=== PATIENT | male | born 1990 | race Caucasian/White ===

== ENCOUNTER 2017-10-13 16:22 | Emergency (ER) | payer OTHER ==
[~2017-10-13] VITALS: Ht 190.5 cm; Wt 89.9 kg
[~2017-10-13 16:22] MED LIST: CEPH500C2 PO; OXYC10TA80 PO
[2017-10-13 16:50] VITALS: BP 139/79; PULSE 108; TEMP 36.7; O2SAT 97; Ht 190.5 cm; Wt 89.9 kg
--- NOTE | 2017-10-13 17:05 | EMERGENCY ROOM VISIT NOTE ---
ED Visit Note First contact with patient: 16:58 CHIEF COMPLAINT: Concern for foreign body in left arm HISTORY OF PRESENT ILLNESS: This 27-year-old male patient presents to the emergency department, ambulatory, complaining of an IV needle broke off in the left arm. The patient had a peripheral IV in the left AC vein placed several days ago to receive antibiotics. He states this afternoon, the IV came out of his arm. He thought that a needle remains in the arm, and did not realize it was simply a soft catheter. He states when the catheter came out, he thought a needle was left behind. When he came to the emergency department, the IV was removed and they noted the catheter had folded over. It was intact. The patient states when he learned there was no metal needle involved, he felt comfortable, but wanted to be evaluated to ensure there was no concern. He denies any problems at the site. He denies any redness, swelling, or drainage. The IV is in place due to a right finger infection, for which the patient is following with orthopedics. REVIEW OF SYSTEMS: A 6 system review of systems was performed with positives and pertinent negatives listed in the history of present illness. All other systems were reviewed and are negative. ALLERGIES: None MEDICATIONS: Keflex, Rocephin PMH: Cellulitis SOCIAL HISTORY: The patient lives locally with family. He admits to smoking a pack of cigarettes per day. He denies drug, alcohol use. PHYSICAL EXAM: VITALS: Vitals are noted on the nurse's note and reviewed by myself. Vital signs stable. GENERAL: This is a 27-year-old white male, in no acute distress, nondiaphoretic , well-developed well-nourished. SKIN: There is a small hematoma in the left antecubital space in the area of the previous IV. There is no foreign body noted on palpation. Per nursing staff, the entire IV had been removed. There is no erythema or drainage. EMERGENCY DEPARTMENT COURSE: The patient was seen and evaluated as above. There is no obvious foreign body noted. The patient was comfortable with this after he was educated on IV catheters. No further treatment necessary. Discharge instructions reviewed, the patient was discharged home in good condition. I attest that I have personally reviewed the patient's current medication list. Patient was found to have normal blood pressure on screening and does not require follow-up. Differential diagnosis includes foreign body, cellulitis, abscess, and others DIAGNOSIS: concern for foreign body in arm The chart was completed utilizing [employer] Speech voice recognition software. Grammatical errors, random word insertions, pronoun errors, and incomplete sentences are an occasional consequence of this system due to software limitations, ambient noise, and hardware issues. Any formal questions or concerns about the content, text, or information contained within the body of this dictation should be directly addressed to the provider for clarification. Problem List Medical Problems: (1) Scabies Status: Resolved Current/Historical Medications Scheduled Cephalexin Monohydrate (Keflex), 500 MG PO QID Scheduled PRN Oxycodone/Acetaminophen 10MG/325MG (Percocet 10MG/325MG), 1 TAB PO Q4 PRN for Pain Allergies Coded Allergies: No Known Allergies (Unverified , 10/11/17) Vital Signs Date Time Temp Pulse Resp B/P (MAP) Pulse Ox O2 Delivery O2 Flow Rate FiO2 10/13/17 16:50 36.7 108 18 139/79 97 Room Air Departure Information Impression Primary Impression: Complaint about extremity Dispostion Home / Self-Care Condition GOOD Referrals No Doctor, Assigned (PCP) Patient Instructions My [facility] Additional Instructions You are seen in the emergency department for a possible IV complication. The IV catheter was intact, and there does not appear to be any foreign body remaining in the site. You may use warm, moist compresses to help with any discomfort in the area. Continue antibiotics as prescribed by orthopedics. Ibuprofen(Motrin, Advil) may be used for fever or pain. Use 600mg every six hours as needed. Take with food. Avoid using more than 2400mg in a 24 hour period. Do not use 2400mg per day for more than three consecutive days without physician direction. Prolonged inappropriate use can lead to stomach upset or ulcers. (AND/OR) Acetaminophen(Tylenol) may be used for fever or pain. Use 1000mg every six hours as needed. Avoid using more than 3000mg in a 24 hour period. Return to the emergency department for any worsening or concerning symptoms.
== END 2017-10-13 17:19 | disposition home or self-care (01) ==
LOC: C.EDB 16:23 → C.EDD 17:19
DX: Z01.89 Encounter for other specified special examinations (principal); S50.12XA Contusion of left forearm, initial encounter; X58.XXXA Exposure to other specified factors, initial encounter

== ENCOUNTER 2017-11-02 17:28 | Inpatient (IN) | payer OTHER ==
[~2017-11-02] VITALS: Ht 160 cm; Wt 86.2 kg
[~2017-11-02 17:28] MED LIST changes: -CEPH500C2 PO; +OXYC-106 PO; -OXYC10TA80 PO
[2017-11-02] MEDS ORDERED: ONDANSETRON INJ 2 MG/ML 2 ML VIAL IV PRN (18:00)
[2017-11-02] MEDS ORDERED: ACETAMINOPHEN 325 MG TAB PO PRN (18:00)
--- NOTE | 2017-11-02 20:33 | PROGRESS NOTE ---
DATE: 11/02/2017 The patient is seen in conjunction with Kiara Valdez. For further details, refer to her dictation. She and I saw and evaluated this patient together. Approximately 3 weeks ago. I performed a surgical procedure in the Emergency Room on Mr. Sheffield. He had at that time had a chronic laceration involving the extensor tendon and joint of his right long finger PIP joint. The wound was irrigated and mostly closed in the Emergency Room. He was to come into the hospital to get IV antibiotics over the weekend as he did not want to get admitted. He did not follow up with me as scheduled. He has been contacted multiple times by my office or attempted to be contacted and did not return for a followup or could not be contacted. Today, he reports that the finger continues to drain. The wound is open. He is interested in what can be done to help his finger. The wound has not healed. He reports significant stiffness in the finger with limited mobility. He has not had any fever, chills, or sweats. He is afebrile. White count is normal. Sedimentation rate 7. C-reactive protein is normal. Chemistries are noted. On the right long finger, he has a 1.5 x 1 cm open area. Stitches are partially in place or torn out of position. 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 He can flex the DIP joint and MP joint, but movement at the PIP joint is limited. There is seropurulent drainage in the base of the wound. I cannot palpate any direct bony structures. There is fibrinous exudate and granulating tissue. The remainder of the finger is not notably swollen or erythematous. There is tenderness to palpation at the PIP joint. Capillary refill is less than 2 seconds. Sensation is intact at the tip of the finger. Radiographs of the right long finger show a boutonniere type deformity. There is no evidence of osteomyelitis, and there is no fracture or dislocation present. 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 PLAN: Findings are discussed. I have recommended that he be admitted to the hospital now for surgery either tonight or tomorrow. He has some personal issues to attend to and will not be able to be admitted until between 9 and midnight tonight. The patient will come back at that time. He will be placed on antibiotics, be made n.p.o. after midnight, and plan for surgery tomorrow to do irrigation and debridement, washout, and exploration. Subsequent to that, he may need some plastic surgery for soft tissue coverage if we cannot clean the wound up adequately. Further surgery might be necessary in order to get the wound closed. One option is to consider amputation, which would be a quicker recovery. The other options would require a healthy soft tissue envelope, which will be attempted to be affected tomorrow. Those other options would be some type of extensor tendon reconstruction or a PIP joint fusion if it were to be necessary. I think that he is going to have chronic problems with this finger in terms of mobility and use. I did offer him a referral to a hand specialist and that may be necessary depending on what he chooses to do. An informed consent is obtained.
--- NOTE | 2017-11-02 21:09 | History and Physical ---
History & Physical Date & Time of Service: November 02, 2017 at 20:51 Chief Complaint: Infection Right Finger Primary Care Physician: No Doctor, Assigned History of Present Illness Source: patient Patient is a 27 year old male s/p a chronic wound/injury to his right middle finger. Approximately 3 weeks ago he had an incision and drainage of his right middle finger in the ED. He failed to get IV antibiotics as instructed and was not compliant with follow up after multiple attempts at trying to get him in to the office. He presented to the ED today with increased pain and swelling of his right middle finger. He states that he "works with his hands" and gets it dirty. He states that he gets motor oil on it frequently. He states that he's "been trying to take care of this himself". It continues to worsen with increased pain, drainage, swelling, loss of mobility of his finger. He has not had a reinjury. He does have some retained sutures and admits to removing some of them on his own, but it was very painful. It sounds like he completed an early course of Keflex after his last ED visit but has not been on antibiotics for a few weeks. He is interested in having his finger taken care of as he states he now realizes that he can't do this by himself. It was recommended for admission, surgical irrigation and debridement which is scheduled for with Dr. Zee. Past Medical/Surgical History Medical Problems: (1) Abscess of right middle finger (2) Abscess of right middle finger (3) Cellulitis of finger of right hand (4) Cellulitis of finger of right hand (5) Complaint about extremity (6) Finger infection (7) Penile discharge (8) Scabies Family History Patient reports no known family medical history. Family history is positive for heart disease and high blood pressure. Social History Smoking Status: Never Smoker Alcohol Use: none (denies) Drug Use: none Marital Status: single Occupational Status: unemployed (self employed, does a lot of side jobs.) Allergies Coded Allergies: No Known Allergies (Unverified , 11/02/17) Home Medications No Active Prescriptions or Reported Meds Review of Systems Constitutional: No fever, No chills, No weight loss, No fatigue Eyes: No redness ENT: No hearing loss, No sore throat, No tinnitus Respiratory: No cough, No sputum, No wheezing, No shortness of breath Cardiovascular: No chest pain, No edema, No palpitations Abdomen: No pain, No nausea, No vomiting, No diarrhea, No constipation Musculoskeletal: + joint pain (Right middle finger), + swelling (right middle finger) Genitourinary - Male: No hematuria, No dysuria, No urinary frequency, No urinary hesitancy, No urinary retention Neurologic: No memory loss, No numbness/tingling Psychiatric: No depression symptoms, No anxiety Endocrine: No fatigue Hematologic / Lymphatic: No abnormal bleeding/bruising, No clotting problems Integumentary: No rash, No itch Allergic / Immunologic: No frequent infections, No poor healing Physical Exam General Appearance: WD/WN, no apparent distress Head: normocephalic, atraumatic Eyes: normal inspection, PERRL, EOMI, sclerae normal ENT: normal ENT inspection, hearing grossly normal, TMs normal Neck: supple, no adenopathy, trachea midline Respiratory/Chest: chest non-tender, lungs clear, normal breath sounds, no respiratory distress, no accessory muscle use Cardiovascular: regular rate, rhythm, no edema, no murmur, normal peripheral pulses Abdomen/GI: normal bowel sounds, non tender, soft Extremities/Musculoskelatal: no calf tenderness, normal capillary refill, + pertinent finding (Exam of right middle finger: Edema right middle finger with open dorsal wound over PIP joint. His PIP joint is held in flexion with inabiltity to extend his finger. Flexion/extension at DIP Joint maintained, decrease sensation to light touch around wound edges. Wound with maceration, and retained sutures, which were removed today. Wound slightly debrided removing scabs and mucous tissue. Nontender throughout hand, no therese pus able to be expressed from wound. Clear drainage. Minimal erythema of his wound. Nail bed normal. Distal sensation normal. Cap refill 2+. Distal pulses 2+. Hand otherwise nontender.) Neurologic/Psych: alert, normal mood/affect, oriented x 3 Skin: normal color, warm/dry, no rash Diagnostics Laboratory Results WBC = 7.84 ESR = 2 CRP = <0.29 Diagnostic Radiology XRAY of Right Middle Finger: CLINICAL HISTORY: right middle finger infection, tendon injury, PIP joint COMPARISON: Right hand dated 10/10/2017 DISCUSSION: There is pronounced soft tissue swelling centered on the proximal interphalangeal joint. There is an overlying soft tissue wound/ulceration. There is a boutonniere deformity. This may indicate underlying tendon/retinacular injury. IMPRESSION: 1. No acute fractures or dislocations 2. Pronounced soft tissue swelling centered the proximal interphalangeal joint with an overlying soft tissue wound/ulceration 3. Boutonniere deformity Impression Assessment and Plan Assessment: Right middle finger delayed wound healing with infection Plan: Patient will be admitted for care. It was recommended for surgical intervention. Surgery is scheduled for 11/03/17 for and I&D right middle finger. He has agreed to proceed with surgery. Risks/complications were discussed with thte patient and include but are not limited to infection, pain, bleeding, scarring, nerve and blood vessel damage, wound problems, weakness, stiffness, incomplete relief of symptoms, repeat surgery, heart attack, stroke and . Informed consent was obtained. He will be NPO p MN. Dressings/ splint were applied to his right middle finger. Pain medication prescribed, will hold antibiotics as this time until surgery in order to obtain intra- operative cultures. He understands the importance of the surgery, the admission and post operative care to give him the best chance of preserving his joint/finger and his recovery. He was seen and evaluated by Dr. Zee, all questions were answered. Resuscitation Status VTE Prophylaxis Will order VTE Prophylaxis: No Reason for no VTE drug order: Treatment not indicated Reason no Mechanical VTE Order: Treatment not indicated
[2017-11-02 23:05] VITALS: BP 148/75; PULSE 100; TEMP 37; O2SAT 95
[2017-11-02 23:15] VITALS: BP 148/75; PULSE 100; TEMP 37; Ht 160 cm; Wt 86.2 kg
[2017-11-02] MEDS: OXYCODONE HCL IR 5 MG TAB (IMMEDIATE RELEASE) PO PRN (23:36)
[2017-11-03] VITALS (8 sets, daily range): BP systolic 106–136; BP diastolic 52–78; PULSE 56–68; TEMP 36.5–36.6; O2SAT 97–99
[2017-11-03] MEDS: HYDROmorphone INJ 0.5 MG/0.5 ML SYR IV PRN ×5 (00:42→21:26)
--- NOTE | 2017-11-03 08:32 | Progress Note ---
Orthopedic SOAP Note Subjective Date of Service: November 03, 2017. Reports: complaints (states he's in a lot of pain), Denies: chest pain, SOB, nausea / vomiting, light headedness, calf pain Additional Notes: Was seen in ED yesterday, dressings and splint applied to right middle finger. He states that he "got them wet" and had to remove them. He has it wrapped with rolled gauze. He's requesting more pain medication. Problem List Medical Problems: (1) Abscess of right middle finger Status: Acute (2) Cellulitis of finger of right hand Status: Acute (3) Complaint about extremity Status: Acute Objective A&O x3 Current dressings that he applied left in place, clean and dry. No swelling right middle finger. Date Time Temp Pulse Resp B/P (MAP) Pulse Ox O2 Delivery O2 Flow Rate FiO2 11/03/17 07:35 36.5 68 18 130/73 (92) 97 Room Air 11/02/17 23:15 37.0 100 18 148/75 Room Air 11/02/17 23:15 Room Air 11/02/17 23:05 37.0 100 18 148/75 (99) 95 Room Air Assessment Right middle finger wound Plan Keep dressings on right middle finger Elevate as needed for swelling Continue to be NPO, for OR this morning around 9:30 a.m. Consent placed on chart. Pain medication as prescribed. Will continue to follow.
[2017-11-03] MEDS ORDERED: BACITRACIN 50000 UNIT VIAL ONE (08:45)
[2017-11-03] MEDS ORDERED: CEFAZOLIN SOD 2000MG/15 ML IV PUSH ONE (09:21)
--- NOTE | 2017-11-03 09:24 | History & Physical Bridge Note ---
H&P Re-Evaluation Bridge Note: I have examined the patient, reviewed the History & Physical and in the interval since the performance of the History & Physical I have noted the following changes of clinical significance: No changes noted
[2017-11-03] MEDS ORDERED: MIDAZOLAM HCL 1 MG/ML 2ML VIAL ONE ×2 (09:29→09:30)
[2017-11-03] MEDS ORDERED: FENTANYL CITRATE INJ 50 MCG/1 ML 2 ML VIAL ONE (09:30)
[2017-11-03] MEDS ORDERED: BUPIVACAINE 0.5 % 5 MG/1 ML MPF 30ML VIAL ONE (09:52)
[2017-11-03] MEDS ORDERED: LIDOCAINE/EPINEPHRINE 1% 20 ML VIAL ONE (09:52)
[2017-11-03] MEDS ORDERED: EpINEphrine INJ 1MG/ML AMP 1 MG/ML AMP ONE (09:52)
[2017-11-03] MEDS ORDERED: POVIDONE-IODINE OP SOLN 30 ML BTL ONE (09:52)
[2017-11-03] MEDS ORDERED: PROPOFOL IV EMULSION 10 MG/ML 20 ML VIAL ONE ×2 (10:16→10:38)
--- NOTE | 2017-11-03 10:45 | [facility] Post Operative Brief Note ---
Immediate Operative Summary Operative Date November 03, 2017. Pre-Operative Diagnosis Right Middle Finger Wound Post-Operative Diagnosis Chronically open right middle finger PIP joint with open wound and extensor tendon disruption with soft tissue loss Procedure(s) Performed Sharp excisional debridement irrigation and delayed primary partial wound closure with packing Surgeon Dr. Michael Zee Life Skills Specialist Surgeon(s) Dr. Philippe Cross Estimated Blood Loss 2 cc Findings Consistent with Post-Op Diagnosis Specimens CULTURE: 1) Right Middle Finger Drains None Anesthesia Type MAC Complication(s) none Disposition Accompanied Pt To Recover: no Disposition: Recovery Room / PACU
[2017-11-03] MEDS ORDERED: MoRPHine SULFATE 4 MG/ML 1 ML CARP\\VIAL IV PRN (11:15)
[2017-11-03] MEDS ORDERED: KETOROLAC TROMETHAMINE 30 MG/ML VIAL IV. SCH (11:15)
[2017-11-03] MEDS ORDERED: MAGNESIUM HYDROXIDE SUSP 30 ML UDC PO PRN (11:15)
[2017-11-03] MEDS ORDERED: METOCLOPRAMIDE HCL INJ 5 MG/ML 2 ML VIAL IV PRN (11:15)
--- NOTE | 2017-11-03 11:47 | Anesthesiology Progress Note ---
Anesthesia Post Op Note Date & Time November 03, 2017 at 11:47 Vital Signs Pain Intensity: 0 Vital Signs Past 12 Hours Date Time Temp Pulse Resp B/P (MAP) Pulse Ox O2 Delivery O2 Flow Rate FiO2 11/03/17 11:27 60 9 11/03/17 11:27 61 9 98 11/03/17 11:26 128/82 11/03/17 11:22 66 18 11/03/17 11:22 71 18 99 11/03/17 11:21 126/79 11/03/17 11:17 59 14 99 11/03/17 11:17 61 14 11/03/17 11:16 129/78 11/03/17 11:14 36.5 66 16 129/78 (76) 98 Room Air 11/03/17 11:12 59 12 11/03/17 11:12 59 12 97 11/03/17 11:11 122/78 11/03/17 11:10 59 12 11/03/17 11:10 59 12 98 11/03/17 11:06 116/86 11/03/17 11:05 65 10 11/03/17 11:05 75 10 98 11/03/17 11:01 122/72 11/03/17 11:00 65 14 11/03/17 11:00 66 14 100 11/03/17 10:55 75 18 11/03/17 10:55 78 18 131/81 89 11/03/17 10:55 36.3 76 12 131/81 (89) 99 Oxymask 10 11/03/17 09:00 Room Air 11/03/17 07:35 36.5 68 18 130/73 (92) 97 Room Air Notes Mental Status: alert / awake / arousable, participated in evaluation Pt Amnestic to Procedure: Yes Nausea / Vomiting: adequately controlled Pain: adequately controlled Airway Patency, RR, SpO2: stable & adequate BP & HR: stable & adequate Hydration State: stable & adequate Anesthetic Complications: no major complications apparent
--- NOTE | 2017-11-03 12:04 | [facility] Operative Report ---
Operative Report Operative Date November 03, 2017. Pre-Operative Diagnosis Right Middle Finger Wound Post-Operative Diagnosis Chronically open right middle finger PIP joint with open wound and extensor tendon disruption with soft tissue loss Procedure(s) Performed Sharp excisional debridement irrigation and delayed primary partial wound closure with packing Surgeon Dr. Michael Zee Medical Records Director Surgeon(s) Dr. Philippe Cross Estimated Blood Loss 2 cc Findings Chronic open wound of the right long finger PIP joint with extensor tendon loss and open joint Specimens CULTURE: 1) Right Middle Finger Drains None Anesthesia Type MAC Complication(s) none Disposition no Recovery Room / PACU Indications Patient is a 27-year-old male. Approximately 2-3 weeks ago he presented to the emergency room with a 2-3 week old laceration on the dorsal aspect of the right PIP joint. This had not been treated previously. He had at that time an infection boutonniere deformity and a chronically open wound. In the emergency room irrigation debridement and partial wound closure was performed. The patient was not compliant with his follow-up and or postop medication. My office attempted to contact them numerous times and and he either could not come in because of work or was not able to be contacted on his phone. He appeared in the emergency room last evening wishing to have further treatment done. He has a court date coming up this week. He reports that the finger is painful. There is drainage. He wants to have something done. In the emergency room the wound was cleansed and irrigated it was open 1.5 x 1 cm with granulation tissue and seropurulent discharge. The surrounding finger looked relatively normal. Circulation intact sensation intact movement was limited chronic fixed boutonniere deformity. He actually left the emergency room last evening as he had something personal to attend to and came back later near midnight and was admitted to the hospital. He is now taken to surgery for irrigation debridement exploration. I talked to the patient about his options. My recommendation is to consider an amputation either through the PIP joint or a ray resection. He does not want to accept that and wishes to try to preserve his finger. First and foremost the soft tissue envelope needs to be stabilized and the wound needs to be healed. The colonization/infection needs to be eradicated. Subsequent to that something like a fusion could be considered however I do not think the patient has the resources available to tolerate a long drawn out treatment process. Amputation would put this behind him pretty quickly and getting back to work quickly as well. Description of Procedure Informed consent obtained. Patient was identified. I marked the operative site as the right long finger. A preop surgical timeout was performed a preop dose of IV antibiotics was given. He was positioned supine with the right arm and hand table and a tourniquet on the right upper arm the limb was anesthetized with 1% lidocaine and 0.5% Marcaine with epinephrine for digital block. The arm which was dirty was pre-scrubbed and then prepped and draped in usual sterile fashion with Betadine the tourniquet was inflated after exsanguinating the limb with gravity to 225 mmHg. DVT prophylaxis is not indicated. A preop dose of IV antibiotics was given. Flexion was to about 90 . Chronic boutonniere deformity. The finger could be fully extended but reassume the boutonniere posture. Sharp excisional debridement was performed with a scalpel and rongeur around the margins of the its incision removing granulation tissue that had thinly covered the area. No therese purulence was noted. After doing this debridement the PIP joint was fully exposed at its dorsal aspect. The distal 1 cm of the proximal phalanx was not covered. There was loss of cartilage on the dorsal central portion of the proximal phalanx. The extensor tendon was not present. The wound was irrigated with 500 cc of Betadine lavage and then with sterile saline. Prior to this a culture was obtained. Undermining of the skin edges was performed to help with mobilization. The tourniquet was let down after approximately 15 minutes of inflation and there was a mild bleeding present controlled with pressure. The finger is held extended and the wound margins we were able to be reapproximated with 3-0 nylon simple stitch horizontal mattress and near far far near stitch. Space was left between the stitches and a iodoform quarter-inch gauze packing strip was inserted. The arm was cleaned with wet and dry sponges a bulky soft sterile dressing with fluffs between the fingers in a volar splint with the fingers held in extension was applied. Patient is awake from anesthesia without difficulty and taken to the recovery room in stable condition. There are no complications. The culture was sent. There is no surgical specimen. Blood loss was minimal. At the conclusion operation there is no unavailable to speak to. Counts were correct. Plan is to admit patient to the hospital administered intravenous antibiotics. ID consult. I would consider a wound care consult or a consultation with hand surgery depending on the status of his wound. I attest to the content of the Intraoperative Record and any orders documented therein. Any exceptions are noted below.
[2017-11-03] MEDS: ACETAMINOPHEN 500 MG TAB PO SCH ×2 (13:40→21:26)
[2017-11-03] MEDS: CEFAZOLIN IV 2,000 MG in SYRINGE 0 ML IV SCH ×2 (13:40→21:25)
[2017-11-03] MEDS: D5W AND 1/2NSS + 20MEQ KCL 1,000 ML IV SCH ×2 (13:40→21:25)
--- NOTE | 2017-11-03 14:28 | Progress Note ---
Progress Note Date of Service November 03, 2017. Progress Note ID Consult Dictated #[id number] A/P: 1. Right 2rd finger infection -Continue IV abx, follow OR cultures -Will follow, thank you
--- NOTE | 2017-11-03 14:44 | INFECT. DISEASE CONSULTATION ---
DATE OF CONSULTATION: 11/03/2017 HISTORY OF PRESENT ILLNESS: This is a 27-year-old gentleman who was brought to the hospital on an elective basis for I and D of his right third digit. Three weeks prior to this, he did have wound and injury to this finger. He had an I and D in the Emergency Room on the . At that time, his cultures grew 2 species of MSSA, one which was resistant to clindamycin and group B strep which was resistant to erythromycin. He was placed on a course of Keflex and completed this without significant improvement. He states that he has been off of antibiotics for some time but is unable to quantify an exact amount. He does not feel that the wound got any better. He did have followup with orthopedic surgery prior to this admission and it was noted that he had retained sutures, although he did remove some on his own at home but then the wound became increasingly painful. It was recommended that he come in for I and D and that was done earlier this morning. Intraoperative cultures are pending. He did have x-rays which were negative for osteomyelitis. On my examination, he is only complaining of pain in the hand. He states he was given Tylenol postoperatively, but this was not significant pain relief. He denies any fevers or chills. He currently denies any drainage from the finger prior to admission. His remaining review of systems is reviewed and is unremarkable. PAST MEDICAL HISTORY: Significant for right hand infection and history of scabies. FAMILY HISTORY: Noncontributory. SOCIAL HISTORY: Negative for alcohol, drug use or tobacco use. ALLERGIES: He has no known drug allergies. MEDICATIONS: Multivitamin, Protonix, Tylenol, Ancef, Toradol, Roxicodone, morphine, milk of magnesia, Benadryl, Reglan, acetaminophen, Zofran, and Dilaudid. PHYSICAL EXAMINATION: VITAL SIGNS: He is afebrile, pulse 61, respiratory rate 18, blood pressure 131/78, oxygen saturation is 98% to 99% on room air. GENERAL: He is awake, alert and oriented x3. He is in no acute distress. HEENT: Mucous membranes are moist. Dentition is poor. Extraocular muscles are intact. HEART: Regular. LUNGS: Clear. ABDOMEN: Soft. There is no edema. EXTREMITIES: Right hand dressing is clean, dry and intact. LABORATORY STUDIES: CBC yesterday reveals a white blood cell count of 7.2, hemoglobin 15.4, platelets 233. Chemistry panel on the 14 reveals a sodium of 137, potassium 4.9, chloride 105, bicarbonate 31, BUN 9, creatinine 0.7, glucose 89. LFTs are within normal limits. CRP was negative. Sed rate on the was 2. Urinalysis is not done on this admission. OR culture is pending. Previous culture is as previous. ASSESSMENT AND PLAN: Right finger infection. He will remain on empiric antibiotics pending additional wound cultures. We will follow along with you. Thank you for this consultation.
[2017-11-03] MEDS: OXYCODONE HCL IR 5 MG TAB (IMMEDIATE RELEASE) PO PRN ×2 (15:04→23:42)
--- NOTE | 2017-11-03 15:21 | Progress Note ---
Progress Note Date of Service November 03, 2017. Progress Note Pain. Cultures pending. Afebrile vital signs stable. Distal neurovascular intact dressing clean and dry. I reviewed with him multimodal pain management and what options he has available. I discussed with Lai the findings and results of the surgical procedure. He has some packing which will need to pull out. He expresses a desire to leave.
[2017-11-03] MEDS ORDERED: KETOROLAC TROMETHAMINE 30 MG/ML VIAL IV. PRN (20:00)
[2017-11-04] MEDS: HYDROmorphone INJ 0.5 MG/0.5 ML SYR IV PRN ×6 (00:40→23:50)
[2017-11-04 04:33] VITALS: BP 115/66; PULSE 66; TEMP 36.5; O2SAT 98
[2017-11-04] MEDS ORDERED: CEFAZOLIN SOD 2000MG/15 ML IV PUSH IV ONE (06:00)
[2017-11-04] MEDS: ACETAMINOPHEN 500 MG TAB PO SCH ×3 (06:04→21:39)
[2017-11-04] MEDS: D5W AND 1/2NSS + 20MEQ KCL 1,000 ML IV SCH (07:17)
[2017-11-04 07:25] VITALS: BP 123/71; PULSE 56; TEMP 36.5; O2SAT 98
[2017-11-04] MEDS: MULTIVITAMIN TAB PO SCH (07:25)
[2017-11-04] MEDS: OXYCODONE HCL IR 5 MG TAB (IMMEDIATE RELEASE) PO PRN ×4 (07:25→21:03)
[2017-11-04] MEDS: PANTOprazole SOD 40 MG TAB PO SCH (07:25)
--- NOTE | 2017-11-04 07:53 | Anesthesiology Progress Note ---
Anesthesia Post Op Note Date & Time November 04, 2017 at 07:52 Vital Signs Vital Signs Past 12 Hours Date Time Temp Pulse Resp B/P (MAP) Pulse Ox O2 Delivery O2 Flow Rate FiO2 11/04/17 07:25 36.5 56 18 123/71 (88) 98 Room Air 11/04/17 04:33 36.5 66 15 115/66 (82) 98 Room Air 11/03/17 23:41 Room Air 11/03/17 23:25 36.6 62 16 106/52 (70) 99 Room Air Notes Mental Status: alert / awake / arousable, participated in evaluation Pt Amnestic to Procedure: Yes Nausea / Vomiting: adequately controlled Pain: adequately controlled Airway Patency, RR, SpO2: stable & adequate BP & HR: stable & adequate Hydration State: stable & adequate Anesthetic Complications: no major complications apparent
--- NOTE | 2017-11-04 08:57 | Progress Note ---
Progress Note Date of Service November 04, 2017. Progress Note Patient reports pain. Did not sleep well due to multiple interruptions. Afebrile vital signs stable. Dressing changed. Capillary refill intact finger straight sensation intact. Packing is pulled. Wound edges are well approximated. Redressed with AlumaFoam finger splint. Patient did not want to have a hand splint back on. Cultures are pending as our ID recommendations. Impression is a right hand middle finger open PIP joint with the chronically open wound and extensor tendon disruption. Plan continue elevation pain medicine control. He has multiple medications available for pain control. Continue IV antibiotics and await culture results. Will find more out about antibiotic therapy when cultures come back tomorrow. The importance of follow-up was stressed with the patient particularly compliance with outpatient office visit follow-ups. He has a court hearing today and will need to contact the authorities.
[2017-11-04] MEDS ORDERED: NURSING VERBAL MED ORDER ONE (09:45)
[2017-11-04 11:26] VITALS: BP 108/70; PULSE 87; TEMP 36.5; O2SAT 98
--- NOTE | 2017-11-04 14:16 | Progress Note ---
Subjective Date of Service: November 04, 2017. Subjective pt with security at time of attempted exam, was packing a pipe in room. abx stopped. wound culture with S.aureus. h/o MSSA from last month. declined wearing splint per ortho. afebrile. No am labs. Problem List Medical Problems: (1) Abscess of right middle finger Status: Acute (2) Cellulitis of finger of right hand Status: Acute (3) Complaint about extremity Status: Acute Objective Vital Signs Date Time Temp Pulse Resp B/P (MAP) Pulse Ox O2 Delivery O2 Flow Rate FiO2 11/04/17 11:26 36.5 87 18 108/70 (83) 98 Room Air 11/04/17 07:25 36.5 56 18 123/71 (88) 98 Room Air 11/04/17 07:15 Room Air 11/04/17 04:33 36.5 66 15 115/66 (82) 98 Room Air 11/03/17 23:41 Room Air 11/03/17 23:25 36.6 62 16 106/52 (70) 99 Room Air 11/03/17 19:30 36.5 67 18 136/69 (91) 97 Room Air 11/03/17 15:40 36.5 56 18 131/70 (90) 99 Room Air 11/03/17 15:30 Room Air Laboratory Results Item Value Date Time Gram Stain - Final Resulted 11/03/17 1013 Drainage-Deep Hand Right Assessment and Plan (1) Cellulitis of finger of right hand Assessment & Plan: will restart ancef with recent h/o MSSA. if culture grows MSSA again can be d/c on po keflex 500mg qid to complete 21 day course. wound care per ortho. will follow final culture and make changes if needed. (2) Abscess of right middle finger
[2017-11-04 15:20] VITALS: BP 113/65; PULSE 67; TEMP 37.4; O2SAT 100
[2017-11-04] MEDS: CEFAZOLIN IV 1,000 MG in SYRINGE 0 ML IV SCH ×2 (15:37→21:39)
[2017-11-04 22:57] VITALS: BP 115/71; PULSE 68; TEMP 36.7; O2SAT 99
[2017-11-05 00:05] VITALS: O2SAT 99
[2017-11-05] MEDS: CEFAZOLIN IV 1,000 MG in SYRINGE 0 ML IV SCH ×2 (05:56→14:00)
[2017-11-05] MEDS: ACETAMINOPHEN 500 MG TAB PO SCH ×2 (05:57→14:00)
[2017-11-05] MEDS: HYDROmorphone INJ 0.5 MG/0.5 ML SYR IV PRN (06:02)
[2017-11-05 07:02] VITALS: BP 113/65; PULSE 62; TEMP 36.9; O2SAT 98
--- NOTE | 2017-11-05 07:10 | Discharge Instructions ---
Discharge Instructions Date of Service November 04, 2017. Admission Reason for Admission: Infected Right Finger Discharge Discharge Diagnosis / Problem: Right finger wound/infection Discharge Goals Goal(s): Decrease discomfort, Improve function, Increase independence Activity Recommendations Activity Limitations: per Instructions/Follow-up section Weightbearing Status: Right non-weightbearing (right hand) . Instructions / Follow-Up Instructions / Follow-Up DIET: * Resume previous diet. MEDICATIONS: * Please take your prescriptions as instructed or see medication discharge instructions listed above. * If concerns develop, call your physician's office at . SPECIAL CARE INSTRUCTIONS: * Elevate right hand above heart to relieve pain/swelling. * Keep dressing clean, dry, intact. Do not remove dressings. Keep dressings and splint on until your follow up appointment on Thursday. * Do not use your hand for anything. No pushing, pulling, lifting right hand. * Your surgical extremity may be discolored due to prepping agents used on the skin. A bluish-green tint is a normal variant and should not cause alarm. Call your doctor at [phone] if: * Temperature above 101 degrees * Pain not relieved by pain medicine ordered * There is increased drainage or redness from any incision * You have any unanswered questions, problems or concerns. FOLLOW UP VISIT: * You have a follow up appointment with Dr. Zee on Thursday11/09/17 at 2: 45 p.m. * Follow up with Infectious Disease - Dr. Peter in 2-3 weeks as instructed. Please call office ([phone]) to arrange follow up if necessary. * Please call [phone] with any questions or concerns. Current Hospital Diet Patient's current hospital diet: Regular Diet Discharge Diet Recommended Diet: Regular Diet Procedures Procedures Performed: Sharp excisional debridement irrigation and delayed primary partial wound closure with packing Pending Studies Studies pending at discharge: no Medical Emergencies . Who to Call and When: Medical Emergencies: If at any time you feel your situation is an emergency, please call 491 immediately. . Non-Emergent Contact Non-Emergency issues call your: Surgeon Call Non-Emergent contact if: temperature is above 101, wound has increased drainage, wound has increased redness, wound has increased pain, you have any medication questions . "Provider Documentation" section prepared by Kiara Valdez. . [place] Drug Monitoring Program Search Results: patient reviewed within database, no issues identified
[2017-11-05] MEDS ORDERED: RXC5 PO (07:12)
[2017-11-05] MEDS ORDERED: CEPH500C2 PO (07:12)
[2017-11-05] MEDS ORDERED: MULT-890 PO (07:12)
[2017-11-05] MEDS ORDERED: ACET-1047 PO (07:12)
--- NOTE | 2017-11-05 07:30 | Orthopedic Progress Note ---
Orthopedic Progress Note Date of Service November 05, 2017. Subjective Post OP Day: 2 Reports: feeling well, complaints (complains of pain in finger), pain controlled w PO medications, Denies: chest pain, SOB, nausea / vomiting, calf pain Objective calves soft nontender, N/V intact, capillary refill less than 2 sec., dressing C /D/I, incision C/D/I, A&O x3 Dressings removed, with light dried bloody/serous drainage. Sutures retained, intact. Finger held in flexion. Splint in place right middle finger. Nontender to palpation. No active drainage, no fluctuance. Date Time Temp Pulse Resp B/P (MAP) Pulse Ox O2 Delivery O2 Flow Rate FiO2 11/05/17 07:02 36.9 62 18 113/65 (81) 98 Room Air 11/05/17 00:05 99 Room Air 11/04/17 22:57 36.7 68 16 115/71 (86) 99 Room Air 11/04/17 15:30 Room Air 11/04/17 15:20 37.4 67 20 113/65 (81) 100 Room Air 11/04/17 11:26 36.5 87 18 108/70 (83) 98 Room Air Assessment & Plan Assessment: Right middle finger wound - S/P I & D right middle finger on 11/03/17 Plan: Keep dressings and splint on right middle finger Elevate as needed for swelling Regular diet as ordered. Cultures show MSSA - will discharge on po Keflex 500mg TID x 21 days. Follow up early next week as scheduled. No use of right hand. Discharge home today. Pain medication prescribed. (1) Cellulitis of finger of right hand Acute (2) Abscess of right middle finger Acute Discharge Planning Discharge Planning: home Pain Management: PO Tylenol, Oxy IR
[2017-11-05 08:08] VITALS: BP 113/65; PULSE 62; TEMP 36.9; O2SAT 98
--- NOTE | 2017-11-05 08:15 | Discharge Summary ---
Discharge Summary Date of Service November 05, 2017. Discharge Summary Admission Date: November 02, 2017 at 23:05 Discharge Date: November 05, 2017 Discharge Disposition: Home Principal Diagnosis: right middle finger wound/infection Procedures: I&D right Middle finger on 11/03/17 Consultations: Infectious Disease consultation Pending Studies/Follow-Up: Follow up with Dr. Zee on 11/09/17 at 2:45 p.m. Follow up with Infectious Disease as instructed. Please call office ([phone]) to schedule appointment. Medication Reconciliation New Medications: Cephalexin Monohydrate (Keflex) 500 Mg Cap 500 MG PO TID for 21 Days, #63 CAP Acetaminophen (Mapap) 325 Mg Tab 650 MG PO Q6H PRN for Fever or Headache for 10 Days, #80 TAB Multiple Vitamin (Daily-Guerline) 1 Tab Tab 1 TAB PO QAM for 30 Days, #30 TAB Oxycodone HCl (Oxycodone HCl) 5 Mg Tab 5-10 MG PO Q4H PRN for Pain, #30 TAB 0 Refills Admission Information HPI (per Admitting provider): Patient is a 27 year old male s/p a chronic wound/injury to his right middle finger. Approximately 3 weeks ago he had an incision and drainage of his right middle finger in the ED. He failed to get IV antibiotics as instructed and was not compliant with follow up after multiple attempts at trying to get him in to the office. He presented to the ED today with increased pain and swelling of his right middle finger. He states that he "works with his hands" and gets it dirty. He states that he gets motor oil on it frequently. He states that he's "been trying to take care of this himself". It continues to worsen with increased pain, drainage, swelling, loss of mobility of his finger. He has not had a reinjury. He does have some retained sutures and admits to removing some of them on his own, but it was very painful. It sounds like he completed an early course of Keflex after his last ED visit but has not been on antibiotics for a few weeks. He is interested in having his finger taken care of as he states he now realizes that he can't do this by himself. It was recommended for admission, surgical irrigation and debridement which is scheduled for with Dr. Zee. Physical Exam (per Admitting): General Appearance: WD/WN, no apparent distress Head: normocephalic, atraumatic Eyes: normal inspection, PERRL, EOMI, sclerae normal ENT: normal ENT inspection, hearing grossly normal, TMs normal Neck: supple, no adenopathy, trachea midline Respiratory/Chest: chest non-tender, lungs clear, normal breath sounds, no respiratory distress, no accessory muscle use Cardiovascular: regular rate, rhythm, no edema, no murmur, normal peripheral pulses Abdomen/GI: normal bowel sounds, non tender, soft Extremities/Musculoskelatal: no calf tenderness, normal capillary refill, + pertinent finding (Exam of right middle finger: Edema right middle finger with open dorsal wound over PIP joint. His PIP joint is held in flexion with inabiltity to extend his finger. Flexion/extension at DIP Joint maintained, decrease sensation to light touch around wound edges. Wound with maceration, and retained sutures, which were removed today. Wound slightly debrided removing scabs and mucous tissue. Nontender throughout hand, no therese pus able to be expressed from wound. Clear drainage. Minimal erythema of his wound. Nail bed normal. Distal sensation normal. Cap refill 2+. Distal pulses 2+. Hand otherwise nontender.) Neurologic/Psych: alert, normal mood/affect, oriented x 3 Skin: normal color, warm/dry, no rash Hospital Course Patient is a 27 year old male, who presented to the ED for evaluation of his right finger. He had been treated in the ED approximately [address] Zee for wound and infection. He had a bedside I&D of his right middle finger in the ED. He failed to follow up appropriately after multiple attempts to contact the patient. He continued to have pain, he removed some of his own sutures, and presented back to the ED on 11/02/17 with complaints of continued pain, drainage, open wound and loss of function. He was seen and evaluated by Dr. Zee, his wound was cleaned and irrigated, sutures were removed and splint and dressings were applied. Surgical intervention recommended, he wished to proceed. He was direct admitted on 11/02/17. He was made NPO p MN. On Friday, November 03, 2017 he underwent an irrigation and debridement of his right middle finger. It was done with general anesthesia. He tolerated the procedure well without any intraoperative complications. He was given 2 g of IV Ancef for surgical prophylaxis which was continued during his inpatient stay. Dressings and splint were applied. He complained of a lot of pain during his inpatient stay. He was given IV Toradol, IV Dilaudid and oral oxycodone and oral Tylenol. He tolerated a regular diet during his inpatient stay. He was seen in consultation by infectious disease, Dr. Peter. She followed the cultures, IV Ancef was continued and she recommended oral Keflex 3 times daily 21 days with MSSA. His cultures grew out MSSA. Postoperative day 1 his dressings were changed and new dressings and smaller splint were applied. He has kept this in place. He was instructed to elevate as needed for swelling. On postop day 2, November 05, 2017 he was stable for discharge. He was sent home with discharge instructions. We reiterated the need to leave his dressings in place, take his antibiotics and follow postoperative instructions, and come to his follow-up appointments. All questions were answered. He was discharged to his home in stable condition. Total time spent on discharge = This includes examination of the patient, discharge planning, medication reconciliation, and communication with other providers. Discharge Instructions Discharge Instructions Date of Service November 04, 2017. Admission Reason for Admission: Infected Right Finger Discharge Discharge Diagnosis / Problem: Right finger wound/infection Discharge Goals Goal(s): Decrease discomfort, Improve function, Increase independence Activity Recommendations Activity Limitations: per Instructions/Follow-up section Weightbearing Status: Right non-weightbearing (right hand) . Instructions / Follow-Up Instructions / Follow-Up DIET: * Resume previous diet. MEDICATIONS: * Please take your prescriptions as instructed or see medication discharge instructions listed above. * If concerns develop, call your physician's office at . SPECIAL CARE INSTRUCTIONS: * Elevate right hand above heart to relieve pain/swelling. * Keep dressing clean, dry, intact. Do not remove dressings. Keep dressings and splint on until your follow up appointment on Thursday. * Do not use your hand for anything. No pushing, pulling, lifting right hand. * Your surgical extremity may be discolored due to prepping agents used on the skin. A bluish-green tint is a normal variant and should not cause alarm. Call your doctor at [phone] if: * Temperature above 101 degrees * Pain not relieved by pain medicine ordered * There is increased drainage or redness from any incision * You have any unanswered questions, problems or concerns. FOLLOW UP VISIT: * You have a follow up appointment with Dr. Zee on Thursday11/09/17 at 2: 45 p.m. * Follow up with Infectious Disease - Dr. Peter in 2-3 weeks as instructed. Please call office ([phone]) to arrange follow up if necessary. * Please call [phone] with any questions or concerns. Current Hospital Diet Patient's current hospital diet: Regular Diet Discharge Diet Recommended Diet: Regular Diet Procedures Procedures Performed: Sharp excisional debridement irrigation and delayed primary partial wound closure with packing Pending Studies Studies pending at discharge: no Medical Emergencies . Who to Call and When: Medical Emergencies: If at any time you feel your situation is an emergency, please call [phone] immediately. . Non-Emergent Contact Non-Emergency issues call your: Surgeon Call Non-Emergent contact if: temperature is above 101, wound has increased drainage, wound has increased redness, wound has increased pain, you have any medication questions . "Provider Documentation" section prepared by Kiara Valdez. . [place] Drug Monitoring Program Search Results: patient reviewed within database, no issues identified
[2017-11-05] MEDS: PANTOprazole SOD 40 MG TAB PO SCH (09:00)
[2017-11-05] MEDS: MULTIVITAMIN TAB PO SCH (09:33)
[2017-11-05] MEDS: OXYCODONE HCL IR 5 MG TAB (IMMEDIATE RELEASE) PO PRN (09:33)
== END 2017-11-05 14:26 | disposition home or self-care (01) | DRG 513 ==
LOC: C.MSN 23:05
PROVIDERS: ADMIT Physical Medicine & Rehabilitation Sports Medicine; ATTEND Physical Medicine & Rehabilitation Sports Medicine
PROC: 0RBW0ZZ Excision of Right Finger Phalangeal Joint, Open Approach (ICD-10-PCS; principal; 2017-11-03 12:00)
PROC: 0JQJ0ZZ Repair Right Hand Subcutaneous Tissue and Fascia, Open Approach (ICD-10-PCS; principal; 2017-11-03 12:00)
DX: S56.423A Laceration of extensor muscle, fascia and tendon of right middle finger at forearm level, initial encounter (principal); L02.511 Cutaneous abscess of right hand; L03.011 Cellulitis of right finger; B95.61 Methicillin susceptible Staphylococcus aureus infection as the cause of diseases classified elsewhere; M20.021 Boutonniere deformity of right finger(s); S63.632A Sprain of interphalangeal joint of right middle finger, initial encounter; Z91.19 Patient's noncompliance with other medical treatment and regimen; Z91.14 Patient's other noncompliance with medication regimen; Z79.899 Other long term (current) drug therapy; X58.XXXA Exposure to other specified factors, initial encounter